=== PATIENT | male | born 1965 | race Caucasian/White ===

== ENCOUNTER 2018-09-11 11:16 | Emergency (ER) | payer MEDICARE, OTHER ==
[~2018-09-11] VITALS: Ht 177.8 cm; Wt 104.5 kg
[~2018-09-11 11:16] MED LIST: ONDA4TAB35 PO
[2018-09-11 11:24] VITALS: BP 155/96; PULSE 115; RESP 18; Ht 177.8 cm; Wt 104.5 kg
[2018-09-11] MEDS ORDERED: IBUPROFEN 800 MG TAB PO ONE (12:30)
[2018-09-11] MEDS ORDERED: IBUP800T48 PO (14:04)
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
== END 2018-09-11 14:16 | disposition home or self-care (01) ==
LOC: FTE 11:16
DX: M54.5 Low back pain (principal)
CPT/HCPCS: 72100